=== PATIENT | female | born 1950 | race Caucasian/White ===

== ENCOUNTER 2017-06-21 12:23 | Outpatient (CLI) | payer MEDICARE, OTHER ==
--- NOTE | 2017-06-22 12:55 | MRI Report ---
EXAM: MRI BRAIN WITHOUT CONTRAST EXAM DATE: 06/21/2017 12:45 PM. CLINICAL HISTORY: Headache. Headache for 9 months. COMPARISON: None. TECHNIQUE: Multiplanar, multisequence T1-weighted and fluid-sensitive MR sequences of the brain were performed. Sequences optimized for routine evaluation. Other: None. IV Contrast: None. FINDINGS: Brain Volume: Normal for age. Parenchyma/Dura: No mass, acute infarct or hemorrhage. Mild scattered punctate foci of periventricula r and subcortical white matter T2 and FLAIR bright signal is seen throughout the cerebral hemispheres . Prominent dilated perivascular space is seen in the left anterior perforated substance. Ventricles/Cisterns: No hydrocephalus. No abnormal extra-axial fluid collection or hemorrhage. Orbits: Symmetric and unremarkable. Sella Turcica: The pituitary gland, cavernous sinuses, suprasellar cistern and optic chiasm are unrem arkable. IAC: Symmetric and unremarkable. Vasculature: Normal signal flow void is seen in the major arterial structures at the skull base. Sinuses: Mild mucosal thickening is seen throughout left ethmoid region. The mastoid air cells are cl ear. Bones: No focal pathologic appearing marrow signal changes. Other: None. IMPRESSION: 1. Negative noncontrast MRI of the brain. No acute abnormality. 2. Mild scattered punctate foci of periventricular and subcortical white matter T2/FLAIR bright signa l seen in the cerebral hemispheres. This is nonspecific but typically secondary to small vessel ische stacia change. [facility] Referring Provider Line: [phone] SITE ID: [id number]
== END 2017-06-21 12:24 | disposition home or self-care (01) ==
LOC: DI 12:23
PROVIDERS: ATTEND Family Medicine
DX: R51 Headache (principal)
CPT/HCPCS: 70551

== ENCOUNTER 2017-08-14 09:15 | Day surgery (SDC) | payer MEDICARE, OTHER ==
[2017-08-14] MEDS: LACTATED RINGERS 1,000 ML IV ONE (10:02)
[2017-08-14] MEDS ORDERED: fentaNYL 250 MCG/5 ML VIAL IVP ONE (10:20)
[2017-08-14] MEDS ORDERED: MIDAZOLAM 2 MG/2 ML VIAL IVP ONE (10:20)
[2017-08-14 11:09] VITALS: BP 109/70
== END 2017-08-14 09:16 | disposition home or self-care (01) ==
LOC: SDS 09:15
PROVIDERS: ATTEND Surgery
PROC: 0DBL8ZX Excision of Transverse Colon, Via Natural or Artificial Opening Endoscopic, Diagnostic (ICD-10-PCS; 2017-08-14)
PROC: 0DBP8ZX Excision of Rectum, Via Natural or Artificial Opening Endoscopic, Diagnostic (ICD-10-PCS; principal; 2017-08-14 10:30)
DX: Z12.11 Encounter for screening for malignant neoplasm of colon (principal); D12.3 Benign neoplasm of transverse colon; K62.1 Rectal polyp; I10 Essential (primary) hypertension; E03.9 Hypothyroidism, unspecified
CPT/HCPCS: 45380; J3010; J7120; 88305

== ENCOUNTER 2018-01-17 17:31 | Outpatient (CLI) | payer MEDICARE, OTHER ==
--- NOTE | 2018-01-18 08:19 | XRAY Report ---
Reason: KNEE JOINT PAIN, RIGHT Procedure Date: 01/17/2018 Accession Number: [id number] / [id number] Procedure: XR - Knee 3 View RT CPT Code: FULL RESULT: EXAM: RIGHT KNEE RADIOGRAPHY EXAM DATE: 01/17/2018 05:56 PM. CLINICAL HISTORY: KNEE JOINT PAIN, RIGHT. COMPARISON: None. TECHNIQUE: 3 views. FINDINGS: Bones: Normal. No fractures or bone lesions. Joints: Normal. No effusion. No subluxations. Soft Tissues: Normal. No soft tissue swelling. IMPRESSION: Normal knee radiography. [facility]
== END 2018-01-17 17:32 | disposition home or self-care (01) ==
LOC: DI 17:31
PROVIDERS: ATTEND Family Medicine
DX: M25.561 Pain in right knee (principal)

== ENCOUNTER 2018-02-26 15:18 | Outpatient (CLI) | payer MEDICARE, OTHER | END 2018-02-26 15:19 | disposition home or self-care (01) | LOC: LAB.R 15:18 | PROVIDERS: ATTEND Family Medicine | DX: N39.0 Urinary tract infection, site not specified (principal) | CPT/HCPCS: 87086; 87181 ==

== ENCOUNTER 2018-04-12 10:34 | Outpatient (CLI) | payer MEDICARE, OTHER ==
[2018-04-12 12:29] LABS: BASOPHILS % (AUTO) 1.1 %; EOSINOPHILS # (AUTO) 0.1 10^3/uL (0.0-0.7); EOSINOPHILS % (AUTO) 1.9 %; HGB - HEMOGLOBIN 12.5 g/dL (12.0-16.0); LYMPHOCYTES # (AUTO) 1.3 10^3/uL (1.5-3.5); LYMPHOCYTES % (AUTO) 32.5 %; MEAN CORPUSCULAR HEMOGLOBIN 31.3 pg (27.0-31.0); MEAN CORPUSCULAR HGB CONC 34.5 g/dL (32.0-36.0); MEAN CORPUSCULAR VOLUME 90.7 fL (81.0-99.0); MEAN PLATELET VOLUME 6.8 fL (7.9-10.8); MONOCYTES # (AUTO) 0.3 10^3/uL (0.0-1.0); MONOCYTES % (AUTO) 8.9 %; NEUTROPHILS # (AUTO) 2.1 10^3/uL (1.5-6.6); NEUTROPHILS % (AUTO) 55.6 %; PLT - PLATELET COUNT 364 10^3/uL (130-450); RED BLOOD COUNT 3.99 10^6/uL (4.20-5.40); RED CELL DISTRIBUTION WIDTH 12.7 % (12.0-15.0); WHITE BLOOD COUNT 3.9 x10^3/uL (4.8-10.8)
[2018-04-12 12:58] LABS: ALBUMIN 3.8 g/dL (3.2-5.5); ALBUMIN/GLOBULIN RATIO 1.1 (1.0-2.2); BILIRUBIN,TOTAL 0.5 mg/dL (0.2-1.0); CALCIUM 9.4 mg/dL (8.5-10.3); CREATININE 0.6 mg/dL (0.4-1.0); TOTAL PROTEIN 7.4 g/dL (6.7-8.2)
== END 2018-04-12 23:59 | disposition home or self-care (01) ==
LOC: LAB.WCP 10:34
PROVIDERS: ATTEND Family Medicine
DX: R10.9 Unspecified abdominal pain (principal)
CPT/HCPCS: 36415; 80053; 83690; 85025

== ENCOUNTER 2018-04-22 08:04 | Outpatient (CLI) | payer MEDICARE, OTHER ==
[2018-04-22] MEDS ORDERED: IOVERSOL 320 50 ML VIAL ONE (08:17)
[2018-04-22] MEDS ORDERED: IOVERSOL 320 100 ML VIAL IVP ONE (08:17)
[2018-04-22] MEDS: IOVERSOL 320 50 ML VIAL PO ONE (09:28)
[2018-04-22] MEDS: IOVERSOL 320 100 ML VIAL IVP ONE (09:41)
--- NOTE | 2018-04-22 14:35 | CT Report ---
Reason: ABDOMINAL PAIN Procedure Date: 04/22/2018 Accession Number: [id number] / [id number] Procedure: CT - Abdomen/Pelvis W/ CPT Code: FULL RESULT: EXAM: CT ABDOMEN AND PELVIS EXAM DATE: 04/22/2018 09:43 AM. CLINICAL HISTORY: Abdominal pain. COMPARISONS: None. TECHNIQUE: Routine helical CT imaging was performed through the abdomen and pelvis. IV contrast: OPTIRAY 320 100mL. Enteric contrast: Yes. Reconstructions: Coronal and sagittal. In accordance with CT protocol optimization, one or more of the following dose reduction techniques were utilized for this exam: automated exposure control, adjustment of mA and/or KV based on patient size, or use of iterative reconstructive technique. FINDINGS: Lung Bases: Unremarkable. Liver: Normal. No masses. Gallbladder/Bile Ducts: Unremarkable. Spleen: Normal. Pancreas: Normal. Adrenal Glands: Normal. Kidneys: 3.6 cm left lower pole simple renal cyst. No masses or hydronephrosis. Peritoneal Cavity/Bowel: Normal. No free fluid, free air or adenopathy. No masses or acute inflammatory process. The appendix is not visualized, however, there are no pericecal ancillary findings such as inflammation, abscess formation, lymphadenopathy or free fluid to suggest appendicitis. Pelvic Organs: Normal. The bladder and visualized pelvic organs are within normal limits. Vasculature: No aneurysms or other significant abnormality. Bones: No significant abnormality. Other: None. IMPRESSION: Left 3.6 cm simple appearing lower pole renal cyst. [facility]
== END 2018-04-22 08:05 | disposition home or self-care (01) ==
LOC: DI 08:04
PROVIDERS: ATTEND Family Medicine
DX: N28.1 Cyst of kidney, acquired (principal); R10.9 Unspecified abdominal pain
CPT/HCPCS: 74177; Q9967

== ENCOUNTER 2019-09-27 07:26 | Outpatient (CLI) | payer MEDICARE, OTHER ==
--- NOTE | 2019-09-27 21:22 | Ultrasound Report ---
Reason: RUQ ABD PX Procedure Date: 09/27/2019 Accession Number: [id number] / [id number] Procedure: US - Abdomen Limited CPT Code: Final Report FULL RESULT: PROCEDURE: Abdomen Limited INDICATIONS: RUQ ABD PX TECHNIQUE: Real-time scanning was performed of the abdominal and retroperitoneal organs, with image documentation. COMPARISON: CT dated 04/22/2018. FINDINGS: Liver: Liver is normal in size and demonstrates diffusely coarse echotexture without focal intrahepatic abnormalities. Gallbladder: There is a 9 mm nonmobile focus noted in the gallbladder fundus. No gallbladder wall thickening, pericholecystic fluid, or abnormal sonographic Peres's sign. Biliary ducts: Intrahepatic bile ducts are non-dilated. Extrahepatic bile duct caliber measures 3 mm. Normal is 6-7 mm or less in diameter, or 10 mm or less post-cholecystectomy. Pancreas: Visualized portions of the pancreas are sonographically normal. Kidneys: Right kidney is normal in size and echotexture. Right kidney measures 11.7 cm long; right renal cortex measures 1.1 cm in thickness. There is a small subcentimeter inferior pole right renal cyst. No hydronephrosis or nephrolithiasis. No solid masses. Miscellaneous: No free abdominal fluid. IMPRESSION: 1. Diffusely heterogeneous/coarsened hepatic echotexture without focal intrahepatic abnormalities may represent hepatic steatosis or other chronic hepatocellular disease. Consider correlation with liver function tests. 2. A nonmobile 9 mm, nonshadowing isoechoic lesion along the wall of the gallbladder fundus/neck possibly representing an adherent gallstone versus tumefactive sludge. No sonographic findings for acute cholecystitis. Reviewed by: Jeb Barrera MD on 09/27/2019 9:21 PM PDT Approved by: Jeb Barrera MD on 09/27/2019 9:21 PM PDT Station ID: [id number]
== END 2019-09-27 07:27 | disposition home or self-care (01) ==
LOC: DI 07:26
PROVIDERS: ATTEND Family Medicine
DX: R10.11 Right upper quadrant pain (principal)
CPT/HCPCS: 76705

== ENCOUNTER 2020-12-28 10:40 | Outpatient (CLI) | payer MEDICARE, OTHER ==
--- NOTE | 2020-12-28 13:37 | DEXA Report ---
PROCEDURE: Dexa Spine and/or Hip INDICATIONS: OSTEOPENIA TECHNIQUE: Dual energy x-ray absorptiometry (DXA) was performed on a [employer] System. Regions measur ed are the AP Spine, femoral neck, and if needed forearm. COMPARISON: None. FINDINGS: Lumbar Spine: Bone Mineral Density 0.979 g/cm/cm,T score 1.7, moderate osteopenia Left Hip: Bone Mineral Density 0.933 g/cm/cm,T score -0.6, normal Left Femoral Neck: Bone Mineral Density 0.916 g/cm/cm, T score -0.9, normal (T score greater or equal to -1.0: NORMAL) (T score from -1.1 to -2.4: OSTEOPENIA) (T score less than or equal to -2.5 to: OSTEOPOROSIS) Impression: Moderate osteopenia within the lumbar spine. Patients with diagnosis of osteoporosis or osteopenia should have regular bone mineral density assess ment. For those eligible for Medicare, routine testing is allowed once every 2 years. Testing frequ ency can be increased for patients who have rapidly progressing disease or for those who are receivin g medical therapy to restore bone mass. Reviewed by: Janell Wood MD on 12/28/2020 1:35 PM PDT Approved by: Janell Wood MD on 12/28/2020 1:35 PM PDT Station ID: [id number]
== END 2020-12-28 10:41 | disposition home or self-care (01) ==
LOC: DI 10:40
PROVIDERS: ATTEND Family Medicine
DX: M85.88 Other specified disorders of bone density and structure, other site (principal)

== ENCOUNTER 2021-07-29 20:29 | Outpatient (CLI) | payer MEDICARE, OTHER ==
--- NOTE | 2021-07-30 03:02 | Ultrasound Report ---
PROCEDURE: Carotid Doppler Complete INDICATIONS: CAROTID ARTERIAL DISEASE TECHNIQUE: Color and pulse Doppler interrogation was performed of both carotid systems, with image documentation and velocity measurements. COMPARISON: None. FINDINGS: Right side: Brachial blood pressure: 130/68 mm Hg. Common carotid artery peak systolic velocity: 137 cm/sec. Internal carotid artery peak systolic velocity: 60 cm/sec. Internal carotid artery end diastolic velocity: 19 cm/sec. External carotid artery peak systolic velocity: 63 cm/sec. ICA/CCA peak systolic ratio: 0.4 . Monroy scale imaging description: There is minimal scattered plaque at the carotid bifurcation and in the carotid bulb. Percent internal carotid artery stenosis: Less than 50%. . Vertebral artery: Flow direction is antegrade. Left side: Brachial blood pressure: 135/73 mm Hg. Common carotid artery peak systolic velocity: 71 cm/sec. Internal carotid artery peak systolic velocity: 96 cm/sec. Internal carotid artery end diastolic velocity: 28 cm/sec. External carotid artery peak systolic velocity: 54 cm/sec. ICA/CCA peak systolic ratio: 1.3 . Monroy scale imaging description: There is mild intimal thickening and minimal amount of plaque. Percent internal carotid artery stenosis: Less than 50%. . Vertebral artery: Flow direction is antegrade. IMPRESSION: 1. Mild narrowing of less than 50% in the carotid bulbs. The estimate of stenosis included in the report of the imaging study was calculated using the NASCET method Reviewed by: Deshawn Santos MD on 07/30/2021 3:01 AM PDT Approved by: Deshawn Santos MD on 07/30/2021 3:01 AM PDT Station ID: [id number]
== END 2021-07-29 20:30 | disposition home or self-care (01) ==
LOC: DI 20:29
PROVIDERS: ATTEND Family Medicine
DX: I65.23 Occlusion and stenosis of bilateral carotid arteries (principal)
CPT/HCPCS: 93880

== ENCOUNTER 2023-01-29 13:48 | Outpatient (CLI) | payer MEDICARE, BC ==
--- NOTE | 2023-01-29 16:54 | DEXA Report ---
PROCEDURE: Dexa Spine and/or Hip INDICATIONS: POST MENOPAUSAL TECHNIQUE: Dual energy x-ray absorptiometry (DXA) was performed on a [employer] Check System. Regions measur ed are the AP Spine, femoral neck, and if needed forearm. COMPARISON: 12/28/2020 FINDINGS: Lumbar Spine: Bone Mineral Density 1.083 g/cm/cm,T score -0.8. Since the most recent prior study, there has been a statistically significant increase in bone mineral density by 10.6 percent. Left Femoral Neck: Bone Mineral Density 0.804 g/cm/cm, T score -1.7. Previous T score -0.9. Left Hip: Bone Mineral Density 0.866 g/cm/cm,T score -1.1. Since the most recent prior study, there has been a statistically significant decrease in bone mineral density by 7.2 percent. (T score greater or equal to -1.0: NORMAL) (T score from -1.1 to -2.4: OSTEOPENIA) (T score less than or equal to -2.5 to: OSTEOPOROSIS) Impression: By WHO criteria, this patient has low bone density (osteopenia). Interval statistical increase in bone mineral density of the lumbar spine. Interval statistical decre ase in bone mineral density of the hip. Patients with diagnosis of osteoporosis or osteopenia should have regular bone mineral density assess ment. For those eligible for Medicare, routine testing is allowed once every 2 years. Testing frequ ency can be increased for patients who have rapidly progressing disease or for those who are receivin g medical therapy to restore bone mass. Reviewed by: Joe Kelsey MD on 01/29/2023 4:53 PM PDT Approved by: Joe Kelsey MD on 01/29/2023 4:53 PM PDT Station ID: [id number]
== END 2023-01-29 13:49 | disposition home or self-care (01) ==
LOC: DI 13:48
PROVIDERS: ATTEND Physician Assistant
DX: M85.88 Other specified disorders of bone density and structure, other site (principal); Z78.0 Asymptomatic menopausal state

== ENCOUNTER 2024-01-08 12:00 | Outpatient (CLI) | payer MEDICARE, BC ==
--- NOTE | 2024-01-08 16:24 | XRAY Report ---
PROCEDURE: Hand 1-2V LT INDICATIONS: HAND PAIN, LEFT TECHNIQUE: 3 views of the hand(s) acquired. COMPARISON: None. FINDINGS: Bones: No fractures or dislocations. Mild arthritic changes of slight sclerosis and spurring at the first IP joint and first CMC joint. No suspicious bony lesions. Soft tissues: No suspicious soft tissue calcifications or masses. IMPRESSION: No acute fractures. Reviewed by: Lillian Almaraz MD on 01/08/2024 4:23 PM PDT Approved by: Lillian Almaraz MD on 01/08/2024 4:23 PM PDT Station ID: [id number]
--- NOTE | 2024-01-08 16:26 | XRAY Report ---
PROCEDURE: Wrist 3+V LT INDICATIONS: WRIST PAIN, LEFT TECHNIQUE: 3 views of the wrist were acquired. COMPARISON: None. FINDINGS: Bones: No acute fractures or malalignment. Mild sclerosis and joint space loss at the triscaphe sneha culation and first CMC joint. Hypertrophic osteophytosis at the medial aspect of the first CMC joint. Subcortical cystic changes in the distal scaphoid. Soft tissues: Calcification along the triangular fibrocartilage course. Mild swelling of the dorsal soft tissues. IMPRESSION: No visible fractures or dislocation. Degenerative changes along the lateral aspect of the wrist. Reviewed by: Lillian Almaraz MD on 01/08/2024 4:25 PM PDT Approved by: Lillian Almaraz MD on 01/08/2024 4:25 PM PDT Station ID: [id number]
== END 2024-01-08 12:15 | disposition home or self-care (01) ==
LOC: DI.N 12:00
PROVIDERS: ATTEND Physician Assistant Medical
DX: M19.032 Primary osteoarthritis, left wrist (principal); M18.12 Unilateral primary osteoarthritis of first carpometacarpal joint, left hand; M19.042 Primary osteoarthritis, left hand